=== PATIENT | male | born 1945 | race Caucasian/White ===

== ENCOUNTER 2017-03-09 22:15 | Emergency (ER) | payer OTHER ==
[2017-03-09 22:25] VITALS: BP 192/87; BMI 25.8
--- NOTE | 2017-03-09 23:18 | DR.GENAD ---
HPI - PCP Primary Care Physician: Pollo CHO - Complaint/Symptoms Chief Complaint Doctors Comments: Patient fell three weeks ago, he did well until this week. He left hip began to get worse. Chief Complaint:: LEFT HIP PAIN RADIATES TO LEFT KNEE - Source History Provided: Patient, Family Member - Mode of Arrival Mode of Arrival: Ambulatory - Timing Onset of Chief Complaint: 03/08/17 PMH - PMH Past Medical History: Yes Past Medical History: Coronary Artery Disease, Diabetes, Hypertension Past Surgical History: Yes Surgical History: Angioplasty/Stents, Appendectomy, Cholecystectomy - Family History History of Family Medical Conditions: Yes Family Medical History: [place], Sudden Cardiac , Hypertension - Social History Does patient currently use any type of tobacco product: No Have you used tobacco products in the last 12 months: No Type of Tobacco Use: None Does any household member use tobacco: No Alcohol Use: None Do you use any recreational Drugs:: No Lives With: Spouse Lives Where: Home - infectious screening In the last 2 months have you had wt loss of >10#?: NO Have you had fever, night sweats or hemotysis?: No Have you traveled outside the country in the last 6 months?: No Isolation: Standard ROS - Review of Systems Eyes: No Symptoms Reported ENTM: No Symptoms Reported Respiratoy: No Symptoms Reported Cardiovascular: No Symptoms Reported Gastrointestinal/Abdominal: No Symptoms Reported Genitourinary: No Symptoms Reported Neurological: No Symptoms Reported Musculoskeletal: Hip (left) Integumentary: No Symptoms Reported Hematologic/Lymphatic: No Symptoms Reported Endocrine: No Symptoms Reported All Other Systems: Reviewed and Negative PE - Vital Signs Vitals: Temperature 98.0 F Pulse Rate 62 Respiratory Rate 16 Blood Pressure [Left Arm] 119/70 Blood Pressure [Right Arm] 136/74 Blood Pressure 192/87 O2 Sat by Pulse Oximetry 97 - General Limitations: No Limitations General Appearance: Alert, In No Apparent Distress - Head Head Exam: Normal Inspection, Atraumatic - Eyes Eye exam: Normal Appearance, PERRL, EOMI - ENT ENT Exam: Normal Exam External Ear Exam: Normal External Inspection TM/Canal Exam: Bilateral Normal Nose Exam: Normal Nose Exam Mouth Exam: Normal Inspection Throat Exam: Normal Inspection - Neck Neck Exam: Normal Inspection - Chest Chest Inspection: Normal Inspection - Respiratory Respiratory Exam: Normal Lung Sounds Bilat Respiratory Exam: Bilateral Clear to Auscultation - Cardiovascular Cardiovascular Exam: Regular Rate, Normal Rhythm - Abdominal Exam Abdominal Exam: Normal Inspection Abdominal Tenderness: negative: RUQ, RLQ, LUQ, LLQ, Epigastrium, Suprapubic, Diffuse, Mild, Moderate, Severe, Other - Extremities Extremities Exam: Other (left hip with extension) - Back Back Exam: Normal Inspection - Neurologic Neurological Exam: Alert, Oriented X3, CN II-XII Intact - Psychiatric Psychiatric Exam: Normal Affect - Skin Skin Exam: Warm, Dry, Intact Course - Reevaluation 1st: Improved ROR - XRAY XRAY Interpreted by: Radiologist (Hip: no acute abnormality) - Diagnosis Discharge Problem: Hip pain, left - Discharge Plan Condition: Stable - Follow ups/Referrals Follow ups/Referrals: Kendrick Cho [Primary Care Provider] - 3 days - Instructions
[2017-03-09] MEDS ORDERED: TORADOL 60 MG VIAL IM ONE (23:21)
[2017-03-09] MEDS ORDERED: TORADOL 60 MG VIAL ONE (23:22)
--- NOTE | 2017-03-10 00:01 | RAD ---
EXAM: Left hip x-ray INDICATION: Hip Pain COMPARISION: No priors for comparison TECHNIQUE: Two views FINDINGS: No acute fracture or dislocation. The joint spaces are preserved. The soft tissues are normal. No ra diopaque foreign body. IMPRESSION: No acute abnormality Reported By:
[2017-03-10] MEDS ORDERED: BICILLIN L-A IM ONE (00:18)
== END 2017-03-10 00:43 | disposition home or self-care (01) ==
LOC: ER 22:42
DX: M25.552 Pain in left hip (principal); W19.XXXA Unspecified fall, initial encounter
CPT/HCPCS: 73501; 96372; 99282; J0570; J1885

== ENCOUNTER 2017-03-10 18:35 | Emergency (ER) | payer OTHER ==
[2017-03-10 18:49] VITALS: BP 199/92; BMI 25.8
--- NOTE | 2017-03-10 18:53 | DR.GENAD ---
HPI - PCP Primary Care Physician: MARQUIS - HPI Comment HPI Comment: HISTORY BELOW. - Complaint/Symptoms Chief Complaint Doctors Comments: PAIN LEFT HIP AND PELVIS TIMES 2 DAYS. SEEN IN ED YESTERDAY. GIVEN MEDS AND HIP XRAY DONE. NOT BETTER. NO TRAUMA. NO FEVER. Chief Complaint:: EXTREME PAIN IN LEFT HIP - Nurses notes reviewed Nurses Notes Review: Yes - Source History Provided: Patient - Mode of Arrival Mode of Arrival: Ambulatory - Timing Onset of Chief Complaint: 03/08/17 Came on: Suddenly - Duration Duration: Constant Duration: Days - Severity Severity: Moderate PMH - PMH Past Medical History: Yes Past Medical History: Coronary Artery Disease, Diabetes, Hypertension Past Surgical History: Yes Surgical History: Angioplasty/Stents, Appendectomy, Cholecystectomy - Family History History of Family Medical Conditions: Yes Family Medical History: [place], Sudden Cardiac , Hypertension - Social History Does patient currently use any type of tobacco product: No Have you used tobacco products in the last 12 months: No Type of Tobacco Use: None Does any household member use tobacco: No Alcohol Use: None Do you use any recreational Drugs:: No Lives With: Spouse Lives Where: Home - infectious screening In the last 2 months have you had wt loss of >10#?: NO Have you had fever, night sweats or hemotysis?: No Have you traveled outside the country in the last 6 months?: No Isolation: Standard ROS - Review of Systems Constitutional: No Symptoms Reported Eyes: No Symptoms Reported ENTM: No Symptoms Reported Respiratoy: No Symptoms Reported Cardiovascular: No Symptoms Reported Gastrointestinal/Abdominal: No Symptoms Reported Genitourinary: No Symptoms Reported Neurological: No Symptoms Reported Musculoskeletal: Left, Hip Integumentary: No Symptoms Reported Hematologic/Lymphatic: No Symptoms Reported Endocrine: No Symptoms Reported All Other Systems: Reviewed and Negative PE - Vital Signs Vitals: Temperature 98 F Pulse Rate 63 Respiratory Rate 18 Blood Pressure [Left Arm] 119/70 Blood Pressure [Right Arm] 136/74 Blood Pressure 199/92 O2 Sat by Pulse Oximetry 100 - General Limitations: No Limitations General Appearance: Alert - Head Head Exam: Normal Inspection - Eyes Eye exam: Normal Appearance - ENT ENT Exam: Normal External Ear Exam External Ear Exam: Normal External Inspection TM/Canal Exam: Bilateral Normal Nose Exam: Normal Nose Exam Mouth Exam: Normal Inspection Throat Exam: Normal Inspection - Neck Neck Exam: Trachea Midline - Chest Chest Inspection: Symmetric Chest Wall Rise - Respiratory Respiratory Exam: Normal Lung Sounds Bilat Respiratory Exam: Bilateral Clear to Auscultation - Cardiovascular Cardiovascular Exam: Regular Rate, Normal Rhythm, Normal Heart Sounds - Abdominal Exam Abdominal Exam: Normal Bowel Sounds, Soft. negative: Tenderness - Extremities Extremities Exam: Normal Inspection - Back Back Exam: Other (TENDERNESS LEFT PELVIS AND HIP.) - Neurologic Neurological Exam: Alert, Oriented X3 - Psychiatric Psychiatric Exam: Normal Affect, Normal Mood - Skin Skin Exam: Normal Color MDM - Additional Information Additional Information Obtained From: Family - Differential Diagnosis Differential Diagnosis: LEFT HIP AND PELVIC PAIN. Course - Treatment Treatment: SEE ORDERS. - Reevaluation 1st: Improved (IM MEDS, PAIN IMPROVED.) - Education/Counseling Education/Counseling: Patient, Family, Education Educated On: Treatment, Diagnosis, Needs for Follow Up ROR - Labs Reviewed Laboratory Results Reviewed?: Yes Result Diagrams: 03/10/17 19:24 03/10/17 19:24 Laboratory: WBC 7.9 X10^3/uL (3.6-10.0) 03/10/17 19:24 RBC 5.06 X10^6/uL (4.7-6.0) 03/10/17 19:24 Hgb 15.3 g/dL (13.5-18.0) 03/10/17 19:24 Hct 46.4 % (42.0-54.0) 03/10/17 19:24 MCV 91.6 fL (80.0-100.0) 03/10/17 19:24 MCH 30.3 pg (27.0-34.0) 03/10/17 19:24 MCHC 33.1 g/dL (33.0-35.0) 03/10/17 19:24 RDW 13.3 % (11.6-16.5) 03/10/17 19:24 Plt Count 189 X10^3/uL (150.0-450.0) 03/10/17 19:24 MPV 9.7 fL (7.4-11.0) 03/10/17 19:24 Neut % 52.1 % (42.0-75.0) 03/10/17 19:24 Lymph % 35.6 % (21.0-51.0) 03/10/17 19:24 [place] % 9.7 % (0.0-13.0) 03/10/17 19:24 Eos % 2.1 % (0.9-2.9) 03/10/17 19:24 Baso % 0.5 % (0.2-1.0) 03/10/17 19:24 Neut # 4.1 x10^3/uL (2.2-4.8) 03/10/17 19:24 Lymph # 2.8 X10^3/uL (1.3-2.9) 03/10/17 19:24 [place] # 0.8 x10^3/uL (0.3-0.8) 03/10/17 19:24 Eos # 0.2 x10^3/uL (0.0-0.2) 03/10/17 19:24 Baso # 0.0 X10^3/uL (0.0-0.1) 03/10/17 19:24 Absolute Nucleated RBC 0.0 /100WBC 03/10/17 19:24 INR Target Range - 03/10/17 19:24 INR 5.18 (0.8-1.3) H* 03/10/17 19:24 PTT 58.0 SECONDS (22.9-36.5) H 03/10/17 19:24 PTT Comment - 03/10/17 19:24 D-Dimer < 100 ng/mL (0-400) 03/10/17 19:24 Sodium 139 mmol/L (136-145) 03/10/17 19:24 Corrected Sodium 142 mmol/L (136-145) 03/10/17 19:24 Potassium 4.0 mmol/L (3.5-5.1) 03/10/17 19:24 Chloride 105 mmol/L (98-107) 03/10/17 19:24 Carbon Dioxide 27.2 mmol/L (21-32) 03/10/17 19:24 BUN 18 mg/dL (7-18) 03/10/17 19:24 Creatinine 0.91 mg/dL (0.70-1.30) 03/10/17 19:24 Est GFR (MDRD) Af Amer > 60 (>60) 03/10/17 19:24 Est GFR (MDRD) Non-Af > 60 (>60) 03/10/17 19:24 Glucose 238 mg/dL (65-99) H 03/10/17 19:24 Calcium 10.2 mg/dL (8.5-10.1) H 03/10/17 19:24 Corrected Calcium TNP 03/10/17 19:24 Total Bilirubin 0.70 mg/dL (0.2-1.0) 03/10/17 19:24 AST 28 Units/L (15-37) 03/10/17 19:24 ALT 49 Units/L (12-78) 03/10/17 19:24 Alkaline Phosphatase 61 Units/L (46-116) 03/10/17 19:24 Total Protein 7.3 g/dL (6.4-8.2) 03/10/17 19:24 Albumin 3.7 g/dL (3.4-5.0) 03/10/17 19:24 Globulin 3.6 g/dL (2.5-4.5) 03/10/17 19:24 Albumin/Globulin Ratio 1.0 Ratio (1.1-2.1) L 03/10/17 19:24 - XRAY XRAY Interpreted by: Radiologist XRAY Findings: REPORT DISCUSS WITH PATIENT. - Diagnosis Discharge Problem: Hip pain, left, Pain, joint, pelvic region and thigh - Discharge Plan Condition: Stable - Follow ups/Referrals Follow ups/Referrals: Kendrick Cho [Primary Care Provider] - 3 days - Instructions Instructions: Hip Pain, Pelvic Pain, Male Additional Instructions: RETURN TO ED IF WORSE. HOLD COUMADIN TONIGHT AND TOMORROW NIGHT. CONSULT WITH DR. CHO SUNDAY TO ADVICE YOU MOVING FORWARD.
[2017-03-10] MEDS ORDERED: DECADRON INJ IM ONE (19:07)
[2017-03-10] MEDS ORDERED: NORFLEX INJ IM ONE (19:07)
[2017-03-10] MEDS ORDERED: TORADOL 60 MG VIAL IM ONE (19:07)
[2017-03-10] MEDS ORDERED: NORFLEX INJ ONE (19:11)
[2017-03-10] MEDS ORDERED: DECADRON INJ ONE (19:11)
[2017-03-10] MEDS ORDERED: TORADOL 60 MG VIAL ONE (19:11)
[2017-03-10 19:39] LABS: BASOPHILS % (AUTO) 0.5 % (0.2-1.0); EOSINOPHILS # (AUTO) 0.2 x10^3/uL (0.0-0.2); EOSINOPHILS % (AUTO) 2.1 % (0.9-2.9); HEMATOCRIT 46.4 % (42.0-54.0); HEMOGLOBIN 15.3 g/dL (13.5-18.0); LYMPHOCYTES # (AUTO) 2.8 X10^3/uL (1.3-2.9); LYMPHOCYTES % (AUTO) 35.6 % (21.0-51.0); MEAN CORPUSCULAR HEMOGLOBIN 30.3 pg (27.0-34.0); MEAN CORPUSCULAR HGB CONC 33.1 g/dL (33.0-35.0); MEAN CORPUSCULAR VOLUME 91.6 fL (80.0-100.0); MEAN PLATELET VOLUME 9.7 fL (7.4-11.0); MONOCYTES # (AUTO) 0.8 x10^3/uL (0.3-0.8); MONOCYTES % (AUTO) 9.7 % (0.0-13.0); NEUTROPHILS # (AUTO) 4.1 x10^3/uL (2.2-4.8); NEUTROPHILS % (AUTO) 52.1 % (42.0-75.0); PLATELET COUNT 189 X10^3/uL (150.0-450.0); RED BLOOD COUNT 5.06 X10^6/uL (4.7-6.0); RED CELL DISTRIBUTION WIDTH 13.3 % (11.6-16.5); WHITE BLOOD COUNT 7.9 X10^3/uL (3.6-10.0)
[2017-03-10 19:48] LABS: ALANINE AMINOTRANSFERASE 49 Units/L (12-78); ALBUMIN 3.7 g/dL (3.4-5.0); ALKALINE PHOSPHATASE 61 Units/L (46-116); ASPARTATE AMINO TRANSFERASE 28 Units/L (15-37); BLOOD UREA NITROGEN 18 mg/dL (7-18); CALCIUM 10.2 mg/dL (8.5-10.1); CARBON DIOXIDE 27.2 mmol/L (21-32); CHLORIDE 105 mmol/L (98-107); COR NA(FOR HYPERGLY) 142 mmol/L (136-145); CREATININE 0.91 mg/dL (0.70-1.30); GLUCOSE 238 mg/dL (65-99); SODIUM 139 mmol/L (136-145); TOTAL PROTEIN 7.3 g/dL (6.4-8.2); eGFR BLACK RACES > 60 (>60); eGFR NON BLACK RACES > 60 (>60)
--- NOTE | 2017-03-10 19:50 | CT ---
EXAM: CT Pelvis without Contrast INDICATION: Left hip pain COMPARISION: No prior TECHNIQUE: Axial images of the pelvis was obtained without intravenous contrast. Coronal and sagittal reconstru ctions were created using the axial data. FINDINGS: The regional skeleton is osteopenic. The bones of the pelvis and both proximal femurs are intact. 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 No fracture or destructive i ntraosseous lesion. Advanced degenerative disc and facet changes are seen in the lower lumbar spine. Degenerative changes also noted in both SI joints and pubic symphysis. No discrete soft tissue abno rmality identified. IMPRESSION: Degenerative arthropathy noted in both hips, the SI joints, pubic symphysis, and lower lumbar levels . No acute bony abnormality identified. Reported By:
[2017-03-10 20:01] LABS: D DIMER < 100 ng/mL (0-400)
== END 2017-03-10 20:31 | disposition home or self-care (01) ==
LOC: ER 18:44
DX: M25.552 Pain in left hip (principal); R10.2 Pelvic and perineal pain; M79.652 Pain in left thigh
CPT/HCPCS: 36415; 72192; 80053; 85025; 85378; 85610; 85730; 96372; 99283; J1100; J1885; J2360

== ENCOUNTER → 2017-03-16 | Outpatient (CLI) | payer OTHER ==
[2017-03-10 18:49] VITALS: BP 199/92
[2017-03-16 11:55] LABS: CRYPTOSPORIDIUM PARVUM ANTIGEN NEGATIVE (NEGATIVE); GIARDIA LAMBLIA ANTIGEN NEGATIVE (NEGATIVE)
== END ==
LOC: LAB 08:24
PROVIDERS: ATTEND Internal Medicine Gastroenterology
DX: R19.7 Diarrhea, unspecified (principal)
CPT/HCPCS: 82270; 82705; 87045; 87205; 87328; 87329; 87336; 87427; 87493; 87899